=== PATIENT | male | born 1935 | race Caucasian/White ===

== ENCOUNTER 2018-03-21 11:03 | Inpatient (IN) ==
[2018-03-21] MEDS ORDERED: SODIUM CHLORIDE 0.9% 1,000 ML IV STA (11:22)
[2018-03-21] MEDS ORDERED: DIPH/TET/ACEL PERT BOOSTER VACCINE 0.5 ML VIAL IM ONE (11:22)
[2018-03-21 12:12] LABS: Basophils % 0.7 % (0.0-0.8); Eosinophils # 0.1 10*3/uL (0.0-0.87); Eosinophils % 1.1 % (0.00-10.9); Hemoglobin 11.9 GM/DL (14.0-18.0); Immature Granulocytes % 0.5 %; Immature Granulocytes Absolute 0.03 #; Lymphocytes % 16.1 % (21.2-54.2); Mean Corpuscular Hemoglobin 30 PG (27-34); Mean Corpuscular Volume 84.4 FL (87-102); Mean Platelet Volume 12.2 FL (9.6-12.0); Monocytes # 0.5 10*3/uL (0.11-0.8); Neutrophils # 4.5 10*3/uL (1.4-7.4); Neutrophils % 73.6 % (38.7-73.9); Platelet Count 168 T/CUMM (130-400); Red Blood Count 4.03 MC/CUMM (3.8-5.5); Red Cell Distribution Width 15.2 % (9.3-17.3); White Blood Count 6.1 T/CUMM (4-12)
[2018-03-21 12:18] LABS: PT Patient Result 10.4 SECS
[2018-03-21 13:18] LABS: Alanine Aminotransferase 18 U/L (16-61); Albumin 3.3 G/DL (3.4-5.0); Alkaline Phosphatase 88 U/L (45-117); Aspartate Amino Transferase 18 U/L (0-37); Blood Urea Nitrogen 24 MG/DL (7-18); Calcium 7.8 MG/DL (8.5-10.1); Glucose 95 MG/DL (74-106); Osmolality,Calculated 284.3 MOS/KG (273-304); Potassium 4.3 MMOL/L (3.5-5.1); Sodium 141 MMOL/L (136-145); Total Protein 6.4 G/DL (6.4-8.3)
[2018-03-21 13:19] LABS: Troponin I Only < 0.015 NG/ML (0.00-0.045)
[2018-03-21 14:00] LABS: Apearance,Urine CLOUDY (Clear); Bacteria,Urine Occasional /HPF (Few); Bilirubin,Urine Negative (Negative); Blood, Urine Large mg/dL (Negative); Glucose,Urine (UA) Negative (Negative); Ketones,Urine 5 mg/dL (Negative); Mucus,Urine Occasional /LPF (Occasional); Nitrite,Urine Negative (Negative); Protein,Urine 30 MG/DL; RBC,Urine 153 /HPF (0-4); Urine Color Yellow (Yellow); Urine Specific Gravity 1.011 (1.001-1.035); Urine Urobilinogen < 2.0 EU/DL (0.2-1.0); WBC,Urine 10 /HPF (0-6)
[2018-03-21] MEDS ORDERED: diphenhydrAMINE CAP 25 MG CAPSULE PO PRN (15:59)
[2018-03-21] MEDS ORDERED: ACETAMINOPHEN 325 MG TABLET PO PRN (15:59)
[2018-03-21] MEDS ORDERED: BISACODYL 5 MG TABLET PO PRN (15:59)
[2018-03-21] MEDS ORDERED: ONDANSETRON 4 MG/2 ML VIAL IV PRN (15:59)
[2018-03-21] MEDS ORDERED: ENOXAPARIN 40 MG/0.4 ML SYRINGE SUBCUT SCH (15:59)
[2018-03-21 17:04] LABS: Risk Ratio 2.56; VLDL CHOLESTEROL 14.6 MG/DL
[2018-03-21] MEDS: SODIUM CHLORIDE 0.9% 1,000 ML IV SCH (18:10)
[2018-03-21] MEDS: PANTOPRAZOLE 40 MG TABLET PO SCH (18:10)
[2018-03-21] MEDS: cefTRIAXone 1,000 MG in SYRINGE 1 EACH IV SCH (18:11)
[2018-03-21] MEDS: BRIMONIDINE 0.1% OPH SOLN 5 ML BOTTLE RIGHT EYE SCH (20:11)
[2018-03-22] MEDS: SODIUM CHLORIDE 0.9% 1,000 ML IV SCH ×3 (01:36→18:11)
[2018-03-22 04:59] LABS: Basophils % 0.7 % (0.0-0.8); Eosinophils # 0.1 10*3/uL (0.0-0.87); Hematocrit 34.5 VOL% (42.0-52.0); Hemoglobin 11.5 GM/DL (14.0-18.0); Immature Granulocytes Absolute 0.06 #; Lymphocytes # 1.4 10*3/uL (1.4-4.0); Lymphocytes % 22.9 % (21.2-54.2); Mean Corpuscular HGB Conc 33.3 GM/DL (32-36); Mean Corpuscular Hemoglobin 29 PG (27-34); Mean Corpuscular Volume 86.5 FL (87-102); Mean Platelet Volume 11.7 FL (9.6-12.0); Monocytes # 0.7 10*3/uL (0.11-0.8); Monocytes % 12.1 % (1.7-12.7); Neutrophils # 3.7 10*3/uL (1.4-7.4); Neutrophils % 61.3 % (38.7-73.9); Platelet Count 195 T/CUMM (130-400); Red Blood Count 3.99 MC/CUMM (3.8-5.5); Red Cell Distribution Width 15.1 % (9.3-17.3)
[2018-03-22 05:38] LABS: Albumin 2.9 G/DL (3.4-5.0); Calcium 7.8 MG/DL (8.5-10.1); Potassium 3.7 MMOL/L (3.5-5.1); Total Protein 6.2 G/DL (6.4-8.3)
[2018-03-22] MEDS: DOCUSATE SODIUM 100 MG CAPSULE PO PRN (09:10)
[2018-03-22] MEDS: ASPIRIN EC 325 MG TABLET PO SCH (09:11)
[2018-03-22] MEDS: PANTOPRAZOLE 40 MG TABLET PO SCH (09:11)
[2018-03-22] MEDS: BRIMONIDINE 0.1% OPH SOLN 5 ML BOTTLE RIGHT EYE SCH ×2 (09:15→20:17)
[2018-03-22] MEDS: cefTRIAXone 1,000 MG in SYRINGE 1 EACH IV SCH (18:12)
[2018-03-22] MEDS ORDERED: TAMSULOSIN 0.4 MG CAPSULE PO SCH (21:00)
[2018-03-23] MEDS: SODIUM CHLORIDE 0.9% 1,000 ML IV SCH (02:18)
[2018-03-23 08:16] VITALS: BP 134/79
[2018-03-23] MEDS: DOCUSATE SODIUM 100 MG CAPSULE PO PRN (09:50)
[2018-03-23] MEDS: PANTOPRAZOLE 40 MG TABLET PO SCH (09:50)
[2018-03-23] MEDS: BRIMONIDINE 0.1% OPH SOLN 5 ML BOTTLE RIGHT EYE SCH (09:50)
[2018-03-23] MEDS: ASPIRIN EC 325 MG TABLET PO SCH (09:50)
== END 2018-03-23 12:54 | disposition home health service (06) | DRG 312 ==
LOC: N.ED 11:03 → SUATTDRO 13:37 → N.EDINP 13:37 → N.TELEN 15:11
PROVIDERS: ADMIT Internal Medicine; ATTEND Internal Medicine

== ENCOUNTER 2018-04-12 05:00 | Inpatient (IN) ==
[2018-04-11 12:24] LABS: Basophils # 0.1 10*3/uL (0.0-0.2); Basophils % 0.6 % (0.0-0.8); Eosinophils # 0.2 10*3/uL (0.0-0.87); Eosinophils % 1.8 % (0.00-10.9); Hematocrit 38.5 VOL% (42.0-52.0); Hemoglobin 12.8 GM/DL (14.0-18.0); Immature Granulocytes % 0.4 %; Immature Granulocytes Absolute 0.04 #; Lymphocytes # 1.5 10*3/uL (1.4-4.0); Lymphocytes % 16.3 % (21.2-54.2); Mean Corpuscular HGB Conc 33.2 GM/DL (32-36); Mean Corpuscular Hemoglobin 29 PG (27-34); Mean Corpuscular Volume 86.3 FL (87-102); Mean Platelet Volume 10.5 FL (9.6-12.0); Monocytes % 11.3 % (1.7-12.7); Neutrophils # 6.3 10*3/uL (1.4-7.4); Neutrophils % 69.6 % (38.7-73.9); Platelet Count 218 T/CUMM (130-400); Red Blood Count 4.46 MC/CUMM (3.8-5.5); Red Cell Distribution Width 14.7 % (9.3-17.3)
[2018-04-11 12:34] LABS: INR 0.9; PT Patient Result 9.9 SECS; Partial Thromboplastin Time 24.8 SECS (0-40)
[2018-04-11 12:56] LABS: Calcium 8.6 MG/DL (8.5-10.1); Osmolality,Calculated 281.4 MOS/KG (273-304); Potassium 4.6 MMOL/L (3.5-5.1)
[~2018-04-12 05:00] MED LIST: SODIUM CHLORIDE 0.9% 1,000 ML IV PRN
[2018-04-12] MEDS ORDERED: CALCIUM CHLORIDE 1,000 MG/10 ML VIAL IV ONE (05:34)
[2018-04-12] MEDS ORDERED: HEPARIN/NACL 0.9% 2 UNITS/ML 500 ML IV ONE (05:34)
[2018-04-12] MEDS ORDERED: EPINEPHrine 1 MG/ML VIAL ONE ×2 (05:35→12:24)
[2018-04-12] MEDS ORDERED: ePHEDrine 50 MG/ML AMP ONE (05:35)
[2018-04-12] MEDS ORDERED: MIDAZOLAM 10 MG/2 ML VIAL ONE (05:35)
[2018-04-12] MEDS ORDERED: LACTATED RINGERS 1,000 ML IV ONE (05:36)
[2018-04-12] MEDS ORDERED: TRANEXAMIC ACID 1,000 MG/10 ML VIAL ONE (05:36)
[2018-04-12] MEDS ORDERED: DEXMEDETOMIDINE 200 MCG/2 ML VIAL IV ONE (05:36)
[2018-04-12] MEDS ORDERED: SODIUM CHLORIDE 0.9% 100 ML IV ONE (05:36)
[2018-04-12] MEDS ORDERED: SODIUM CHLORIDE 0.9% 250 ML IV ONE (05:36)
[2018-04-12] MEDS ORDERED: PHENYLEPHRINE 10 MG/1 ML VIAL IV ONE (05:36)
[2018-04-12] MEDS ORDERED: VECURONIUM 10 MG VIAL IV ONE (05:36)
[2018-04-12] MEDS ORDERED: NITROGLYCERIN DRIP 50 MG/250 ML BOTTLE IV ONE (05:36)
[2018-04-12] MEDS ORDERED: SODIUM CHLORIDE 0.9% 1,000 ML IV ONE (05:36)
[2018-04-12] MEDS ORDERED: PAPAVERINE 60 MG/2 ML VIAL ONE (05:44)
[2018-04-12] MEDS ORDERED: VANCOMYCIN 1,000 MG VIAL ONE ×2 (05:44→11:48)
[2018-04-12] MEDS ORDERED: TISSUE ADHESIVE 1 EACH APPLICATOR TOP ONE (05:44)
[2018-04-12] MEDS ORDERED: CEFUROXIME INJ 1,500 MG in SYRINGE 1 EACH IV ONE (06:00)
[2018-04-12] MEDS ORDERED: DIAZEPAM 5 MG TABLET PO ONE (06:13)
[2018-04-12] MEDS ORDERED: PANTOPRAZOLE 40 MG TABLET PO ONE ×2 (06:13→06:35)
[2018-04-12] MEDS ORDERED: CEFUROXIME 1,500 MG VIAL ONE (06:35)
[2018-04-12] MEDS ORDERED: DIAZEPAM 5 MG TABLET ONE (06:35)
[2018-04-12 08:02] LABS: ABG Base Excess -0.7 MMOL/L (-2.5-2.5); ABG HCO3 23.9 MMOL/L (20-26); ABG PH 7.412 (7.35-7.45); ABG TCO2 20.9 MMOL/L (23-27); Glucose Heart Surgery 116 MG/DL (74-106); Hematocrit Heart Surgery 35.6 PERCENT (42-52); Hemoglobin Heart Surgery 11.6 G/DL (14.0-18.0); Ionized Calcium Arterial 1.19 MMOL/L (1.21-1.46); PH Patient Temp Arterial 7.412; Patient Temperature 37 CELCIUS; Potassium Heart/CVR 3.4 MMOL/L (3.5-5.1); Sodium Heart/CVR 141 MMOL/L (135-145)
[2018-04-12 09:19] LABS: Apearance,Urine CLEAR (Clear); Bilirubin,Urine Negative (Negative); Blood, Urine Large mg/dL (Negative); Glucose,Urine (UA) Negative (Negative); Ketones,Urine Negative (Negative); Mucus,Urine Occasional /LPF (Occasional); Nitrite,Urine Negative (Negative); Protein,Urine 30 MG/DL; RBC,Urine 57 /HPF (0-4); Urine Color Yellow (Yellow); Urine Urobilinogen < 2.0 EU/DL (0.2-1.0); WBC,Urine 6 /HPF (0-6)
[2018-04-12 09:34] LABS: Hematocrit Heart Surgery 27.8 PERCENT (42-52); PCO2 Patient Temp Venous 30.1 MM HG; PH Patient Temp Venous 7.521; PO2 Patient Temp Venous 43.3 MM HG; VBG Base Excess 2.2 MEQ/L (0-4); VBG HCO3 26.2 MEQ/L (24-28); VBG Oxygen Saturation 86.7 %; VBG PCO2 31.6 MMHG (41-51); VBG PH 7.506; VBG PO2 46.4 MMHG (17-40)
[2018-04-12 10:04] LABS: Hematocrit Heart Surgery 28.9 PERCENT (42-52); Hemoglobin Heart Surgery 9.3 G/DL (14.0-18.0); PCO2 Patient Temp Venous 29.2 MM HG; PH Patient Temp Venous 7.522; PO2 Patient Temp Venous 44.8 MM HG; Potassium Heart/CVR 3.7 MMOL/L (3.5-5.1); VBG Base Excess 1.7 MEQ/L (0-4); VBG HCO3 25.8 MEQ/L (24-28); VBG Oxygen Saturation 91.2 %; VBG PCO2 33.8 MMHG (41-51); VBG PH 7.477; VBG PO2 54.8 MMHG (17-40)
[2018-04-12 10:40] LABS: Hematocrit Heart Surgery 28.4 PERCENT (42-52); Hemoglobin Heart Surgery 9.2 G/DL (14.0-18.0); PCO2 Patient Temp Venous 29.1 MM HG; PH Patient Temp Venous 7.538; PO2 Patient Temp Venous 41.7 MM HG; Potassium Heart/CVR 3.9 MMOL/L (3.5-5.1); VBG Base Excess 2.7 MEQ/L (0-4); VBG HCO3 26.7 MEQ/L (24-28); VBG Oxygen Saturation 87.9 %; VBG PCO2 32.1 MMHG (41-51); VBG PH 7.507; VBG PO2 47.8 MMHG (17-40)
[2018-04-12] MEDS ORDERED: POTASSIUM CHLORIDE RIDER 100 ML IV ONE (11:02)
[2018-04-12] MEDS ORDERED: ALBUMIN 5% 12.5 GM/250 ML VIAL IV ONE (11:02)
[2018-04-12] MEDS ORDERED: CALCIUM CHLORIDE 1,000 MG/10 ML SYRINGE IV ONE (11:02)
[2018-04-12] MEDS ORDERED: SODIUM BICARBONATE 50 MEQ/50 ML SYRINGE IV ONE ×2 (11:02→11:38)
[2018-04-12 11:05] LABS: Hematocrit Heart Surgery 28.3 PERCENT (42-52); Hemoglobin Heart Surgery 9.1 G/DL (14.0-18.0); PCO2 Patient Temp Venous 36.6 MM HG; PH Patient Temp Venous 7.445; PO2 Patient Temp Venous 46.3 MM HG; VBG Base Excess 1.3 MEQ/L (0-4); VBG HCO3 25.4 MEQ/L (24-28); VBG Oxygen Saturation 84.5 %; VBG PCO2 36.6 MMHG (41-51); VBG PH 7.445; VBG PO2 46.3 MMHG (17-40)
[2018-04-12 11:38] LABS: ABG Base Excess 0.5 MMOL/L (-2.5-2.5); ABG HCO3 24.9 MMOL/L (20-26); ABG PCO2 42.3 MM HG (35-48); ABG PH 7.389 (7.35-7.45); ABG TCO2 23.2 MMOL/L (23-27); Glucose Heart Surgery 245 MG/DL (74-106); Hematocrit Heart Surgery 31.8 PERCENT (42-52); Hemoglobin Heart Surgery 10.3 G/DL (14.0-18.0); Ionized Calcium Arterial 1.17 MMOL/L (1.21-1.46); PCO2 Patient Temp Arterial 42.3 MMHG; PH Patient Temp Arterial 7.389; Patient Temperature 37 CELCIUS; Potassium Heart/CVR 3.4 MMOL/L (3.5-5.1); Sodium Heart/CVR 137 MMOL/L (135-145)
[2018-04-12] MEDS ORDERED: MAGNESIUM SULFATE 1 GM/2 ML VIAL ONE (11:38)
[2018-04-12] MEDS ORDERED: PROTAMINE SULFATE 250 MG/25 ML VIAL IV ONE (11:38)
[2018-04-12] MEDS ORDERED: HEPARIN 10,000 UNIT/10 ML VIAL ONE (11:38)
[2018-04-12] MEDS ORDERED: ALBUMIN 25% 25 GM/100 ML VIAL IV ONE (11:38)
[2018-04-12] MEDS ORDERED: methylPREDNISolone SOD SUC 1,000 MG/8 ML VIAL ONE (11:38)
[2018-04-12] MEDS ORDERED: MANNITOL 12.5 GM/50 ML VIAL IV ONE (11:39)
[2018-04-12] MEDS ORDERED: FUROSEMIDE 20 MG/2 ML VIAL ONE (11:39)
[2018-04-12] MEDS ORDERED: PROTAMINE SULFATE 50 MG/5 ML VIAL IV ONE (11:39)
[2018-04-12] MEDS ORDERED: PHENYLEPHRINE 1 MG/10 ML SYRINGE IV ONE (11:39)
[2018-04-12] MEDS ORDERED: ONDANSETRON 4 MG/2 ML VIAL IV PRN (12:23)
[2018-04-12] MEDS ORDERED: MAGNESIUM SULF RIDER 4 GM in PREMIX 1 EACH IV PRN (12:23)
[2018-04-12] MEDS ORDERED: CALCIUM CHLORIDE 1,000 MG/10 ML SYRINGE IV PRN (12:23)
[2018-04-12] MEDS ORDERED: ACETAMINOPHEN 650 MG SUPP RECTAL PRN (12:23)
[2018-04-12] MEDS ORDERED: MORPHINE 10 MG/1 ML VIAL IV PRN (12:23)
[2018-04-12] MEDS ORDERED: SODIUM CHLORIDE 0.9% 250 ML IV PRN (12:23)
[2018-04-12] MEDS ORDERED: CHLORHEXIDINE 4% SOLN 118 ML BOTTLE TOP PRN (12:23)
[2018-04-12] MEDS ORDERED: INSULIN REGULAR 100 UNIT/ML IV PRN (12:23)
[2018-04-12] MEDS ORDERED: MIDAZOLAM 2 MG/2 ML VIAL IV PRN (12:23)
[2018-04-12] MEDS ORDERED: POTASSIUM CHLORIDE RIDER 10 MEQ in PREMIX 1 EACH IV PRN (12:23)
[2018-04-12] MEDS ORDERED: MAGNESIUM SULF RIDER 2 GM in PREMIX 1 EACH IV PRN (12:23)
[2018-04-12] MEDS ORDERED: DEXTROSE 50% 25 GM/50 ML VIAL IV PRN ×2 (12:23)
[2018-04-12] MEDS ORDERED: INSULIN REGULAR DRIP 100 ML IV SCH (12:30)
[2018-04-12] MEDS ORDERED: SEVOFLURANE 1 UNIT/15 MINUTE INH ONE (12:41)
[2018-04-12] MEDS ORDERED: LIDOCAINE 1% 5 ML VIAL ONE (12:41)
[2018-04-12] MEDS ORDERED: ESMOLOL 100 MG/10 ML VIAL IV ONE (12:41)
[2018-04-12] MEDS: SODIUM CHLORIDE 0.45% 1,000 ML IV SCH ×2 (13:00)
[2018-04-12] MEDS: ALBUMIN 5% 12.5 GM in PREMIX 1 EACH IV PRN ×4 (13:15→17:35)
[2018-04-12 13:18] LABS: ABG Base Excess -1.1 MMOL/L (-2.5-2.5); ABG HCO3 23.5 MMOL/L (20-26); ABG Oxygen Saturation 97.2 % (95-100); ABG PCO2 42.6 MM HG (35-48); ABG PH 7.365 (7.35-7.45); ABG PO2 91.9 MM HG (80-95); Glucose Heart Surgery 243 MG/DL (74-106); Hematocrit Heart Surgery 32.4 PERCENT (42-52); Hemoglobin Heart Surgery 10.5 G/DL (14.0-18.0); Potassium Heart/CVR 3.4 MMOL/L (3.5-5.1)
[2018-04-12 13:22] LABS: Basophils % 0.2 % (0.0-0.8); Eosinophils % 0.3 % (0.00-10.9); Hematocrit 31.3 VOL% (42.0-52.0); Hemoglobin 10.5 GM/DL (14.0-18.0); Immature Granulocytes % 0.7 %; Immature Granulocytes Absolute 0.08 #; Lymphocytes # 0.5 10*3/uL (1.4-4.0); Mean Corpuscular HGB Conc 33.5 GM/DL (32-36); Mean Corpuscular Hemoglobin 29 PG (27-34); Mean Platelet Volume 10.8 FL (9.6-12.0); Monocytes # 0.8 10*3/uL (0.11-0.8); Monocytes % 6.7 % (1.7-12.7); Neutrophils # 10.1 10*3/uL (1.4-7.4); Neutrophils % 88.1 % (38.7-73.9); Platelet Count 142 T/CUMM (130-400); Red Blood Count 3.64 MC/CUMM (3.8-5.5); Red Cell Distribution Width 14.4 % (9.3-17.3); White Blood Count 11.4 T/CUMM (4-12)
[2018-04-12 13:36] LABS: INR 1.1; PT Patient Result 11.5 SECS; Partial Thromboplastin Time 27.2 SECS (0-40)
[2018-04-12] MEDS: POTASSIUM CHLORIDE RIDER 20 MEQ in PREMIX 1 EACH IV PRN ×3 (13:41→16:58)
[2018-04-12 13:47] LABS: Blood Urea Nitrogen 15 MG/DL (7-18); Calcium 8.3 MG/DL (8.5-10.1); Glucose 230 MG/DL (74-106); Osmolality,Calculated 286.4 MOS/KG (273-304); Potassium 3.5 MMOL/L (3.5-5.1); Sodium 140 MMOL/L (136-145)
[2018-04-12 14:38] LABS: Band Neutrophils 6 % (0-10); Lymphocytes 7 % (20-55); Segmented Neutrophils 86 % (50-85); Total Cells Counted 100
[2018-04-12 14:39] LABS: Platelet Estimate Adequate
[2018-04-12 15:21] LABS: Hematocrit Heart Surgery 33.5 PERCENT (42-52); Hemoglobin Heart Surgery 10.9 G/DL (14.0-18.0); PCO2 Patient Temp Venous 34.6 MM HG; PH Patient Temp Venous 7.441; Potassium Heart/CVR 4.4 MMOL/L (3.5-5.1); VBG Base Excess -0.1 MEQ/L (0-4); VBG HCO3 24.4 MEQ/L (24-28); VBG Oxygen Saturation 99.2 %; VBG PCO2 34.6 MMHG (41-51); VBG PH 7.441
[2018-04-12 16:01] LABS: ABG Base Excess -0.1 MMOL/L (-2.5-2.5); ABG HCO3 24.4 MMOL/L (20-26); ABG Oxygen Saturation 99.2 % (95-100); ABG PCO2 34.7 MM HG (35-48); ABG PH 7.441 (7.35-7.45); ABG TCO2 21.3 MMOL/L (23-27); Glucose Heart Surgery 159 MG/DL (74-106); Hematocrit Heart Surgery 32.1 PERCENT (42-52); Hemoglobin Heart Surgery 10.4 G/DL (14.0-18.0); Potassium Heart/CVR 4.3 MMOL/L (3.5-5.1)
[2018-04-12] MEDS: MORPHINE 4 MG/1 ML VIAL IV PRN ×2 (16:57→19:31)
[2018-04-12] MEDS: CEFUROXIME INJ 1,500 MG in SYRINGE 1 EACH IV SCH (20:30)
[2018-04-12] MEDS: CHLORHEXIDINE 0.12% ORAL RINSE 60 ML BOTTLE SWISH/SPIT SCH (20:53)
[2018-04-13] MEDS: SODIUM CHLORIDE 0.45% 1,000 ML IV SCH ×2 (01:58→15:29)
[2018-04-13] MEDS: MORPHINE 4 MG/1 ML VIAL IV PRN ×3 (02:37→21:10)
[2018-04-13 04:19] LABS: Basophils % 0.1 % (0.0-0.8); Hemoglobin 8.8 GM/DL (14.0-18.0); Immature Granulocytes % 0.3 %; Immature Granulocytes Absolute 0.05 #; Lymphocytes # 0.4 10*3/uL (1.4-4.0); Mean Corpuscular HGB Conc 33.8 GM/DL (32-36); Mean Corpuscular Hemoglobin 29 PG (27-34); Mean Corpuscular Volume 86.4 FL (87-102); Monocytes % 6.8 % (1.7-12.7); Neutrophils # 13.1 10*3/uL (1.4-7.4); Neutrophils % 89.8 % (38.7-73.9); Platelet Count 136 T/CUMM (130-400); Red Blood Count 3.01 MC/CUMM (3.8-5.5); Red Cell Distribution Width 14.5 % (9.3-17.3); White Blood Count 14.5 T/CUMM (4-12)
[2018-04-13 04:33] LABS: Calcium 7.9 MG/DL (8.5-10.1); Osmolality,Calculated 279.5 MOS/KG (273-304); Potassium 4.1 MMOL/L (3.5-5.1)
[2018-04-13 05:06] LABS: Band Neutrophils 1 % (0-10); Hypochromasia 1+; Lymphocytes 2 % (20-55); Ovalocytes Slight; Platelet Estimate Normal; Segmented Neutrophils 91 % (50-85); Total Cells Counted 100
[2018-04-13] MEDS: INSULIN REGULAR 100 UNIT/ML SUBCUT SCH ×4 (08:08→21:09)
[2018-04-13] MEDS: FUROSEMIDE 40 MG TABLET PO SCH (08:52)
[2018-04-13] MEDS: PANTOPRAZOLE 40 MG VIAL IV SCH (08:52)
[2018-04-13] MEDS: ASPIRIN EC 325 MG TABLET PO SCH (08:52)
[2018-04-13] MEDS: CEFUROXIME INJ 1,500 MG in SYRINGE 1 EACH IV SCH ×2 (08:53→21:09)
[2018-04-13] MEDS: CHLORHEXIDINE 0.12% ORAL RINSE 60 ML BOTTLE SWISH/SPIT SCH ×2 (09:14→21:09)
[2018-04-13] MEDS: METOPROLOL TARTRATE 25 MG TABLET PO SCH ×2 (09:14→21:07)
[2018-04-13] MEDS: ATORVASTATIN 40 MG TABLET PO SCH (21:07)
[2018-04-13] MEDS: TAMSULOSIN 0.4 MG CAPSULE PO SCH (21:07)
[2018-04-13] MEDS: BRIMONIDINE 0.1% OPH SOLN 5 ML BOTTLE RIGHT EYE SCH (21:09)
[2018-04-14] MEDS ORDERED: AMIODARONE 150 MG/3 ML VIAL ONE (03:11)
[2018-04-14] MEDS ORDERED: AMIODARONE INJ 150 MG in DEXTROSE 5% 100 ML IV ONE ×2 (03:30→10:30)
[2018-04-14] MEDS ORDERED: AMIODARONE INJ 450 MG in DEXTROSE 5% 241 ML IV SCH ×2 (03:45→10:30)
[2018-04-14 05:35] LABS: Basophils % 0.2 % (0.0-0.8); Hematocrit 29.9 VOL% (42.0-52.0); Hemoglobin 9.9 GM/DL (14.0-18.0); Immature Granulocytes % 0.9 %; Immature Granulocytes Absolute 0.17 #; Lymphocytes # 0.9 10*3/uL (1.4-4.0); Mean Corpuscular HGB Conc 33.1 GM/DL (32-36); Mean Corpuscular Hemoglobin 29 PG (27-34); Mean Corpuscular Volume 87.7 FL (87-102); Mean Platelet Volume 11.6 FL (9.6-12.0); Monocytes # 2.2 10*3/uL (0.11-0.8); Monocytes % 11.8 % (1.7-12.7); Neutrophils # 15.1 10*3/uL (1.4-7.4); Neutrophils % 82.1 % (38.7-73.9); Platelet Count 149 T/CUMM (130-400); Red Blood Count 3.41 MC/CUMM (3.8-5.5); Red Cell Distribution Width 14.4 % (9.3-17.3); White Blood Count 18.4 T/CUMM (4-12)
[2018-04-14 06:04] LABS: Calcium 8.2 MG/DL (8.5-10.1); Potassium 4.2 MMOL/L (3.5-5.1)
[2018-04-14] MEDS: INSULIN REGULAR 100 UNIT/ML SUBCUT SCH ×4 (07:33→20:29)
[2018-04-14] MEDS: FUROSEMIDE 40 MG TABLET PO SCH (08:34)
[2018-04-14] MEDS: METOPROLOL TARTRATE 25 MG TABLET PO SCH (08:34)
[2018-04-14] MEDS: MULTIVITAMIN (BEROCCA) TABLET PO SCH (08:34)
[2018-04-14] MEDS: ASPIRIN EC 325 MG TABLET PO SCH (08:35)
[2018-04-14] MEDS: CHLORHEXIDINE 0.12% ORAL RINSE 60 ML BOTTLE SWISH/SPIT SCH ×2 (08:35→20:28)
[2018-04-14] MEDS: BRIMONIDINE 0.1% OPH SOLN 5 ML BOTTLE RIGHT EYE SCH ×2 (08:37→20:28)
[2018-04-14] MEDS: PANTOPRAZOLE 40 MG VIAL IV SCH (08:48)
[2018-04-14] MEDS ORDERED: FUROSEMIDE 40 MG/4 ML VIAL IV ONE (09:43)
[2018-04-14] MEDS ORDERED: LEVALBUTEROL 0.31 MG/3 ML NEB RESP TX PRN (09:43)
[2018-04-14] MEDS ORDERED: ALBUMIN 5% 12.5 GM in PREMIX 1 EACH IV ONE ×2 (10:00→12:54)
[2018-04-14] MEDS ORDERED: LACTATED RINGERS 500 ML IV ONE (12:54)
[2018-04-14] MEDS: ASCORBIC ACID 500 MG TABLET PO SCH ×2 (15:20→20:28)
[2018-04-14] MEDS ORDERED: METOPROLOL TARTRATE 5 MG/5 ML VIAL IV ONE (19:00)
[2018-04-14] MEDS ORDERED: DILTIAZEM INJ 100 MG in SODIUM CHLORIDE 0.9% 100 ML IV SCH (19:30)
[2018-04-14] MEDS: TAMSULOSIN 0.4 MG CAPSULE PO SCH (20:28)
[2018-04-14] MEDS: ATORVASTATIN 40 MG TABLET PO SCH (20:28)
[2018-04-15 05:05] LABS: Basophils % 0.2 % (0.0-0.8); Eosinophils % 0.3 % (0.00-10.9); Hematocrit 27.7 VOL% (42.0-52.0); Hemoglobin 9.6 GM/DL (14.0-18.0); Immature Granulocytes % 0.6 %; Immature Granulocytes Absolute 0.07 #; Lymphocytes # 0.9 10*3/uL (1.4-4.0); Lymphocytes % 7.1 % (21.2-54.2); Mean Corpuscular HGB Conc 34.7 GM/DL (32-36); Mean Corpuscular Hemoglobin 30 PG (27-34); Mean Corpuscular Volume 85.2 FL (87-102); Mean Platelet Volume 11.2 FL (9.6-12.0); Monocytes # 1.3 10*3/uL (0.11-0.8); Monocytes % 10.2 % (1.7-12.7); Neutrophils # 10.1 10*3/uL (1.4-7.4); Neutrophils % 81.6 % (38.7-73.9); Platelet Count 143 T/CUMM (130-400); Red Blood Count 3.25 MC/CUMM (3.8-5.5); Red Cell Distribution Width 14.2 % (9.3-17.3); White Blood Count 12.3 T/CUMM (4-12)
[2018-04-15 05:31] LABS: Calcium 8.1 MG/DL (8.5-10.1); Osmolality,Calculated 280.5 MOS/KG (273-304); Potassium 3.8 MMOL/L (3.5-5.1)
[2018-04-15] MEDS ORDERED: POTASSIUM CHLORIDE RIDER 20 MEQ in PREMIX 1 EACH IV PRN (06:14)
[2018-04-15] MEDS ORDERED: AMIODARONE INJ 450 MG in DEXTROSE 5% 241 ML IV SCH (06:30)
[2018-04-15] MEDS ORDERED: LACTATED RINGERS 500 ML IV ONE (07:21)
[2018-04-15] MEDS ORDERED: METOPROLOL TARTRATE 5 MG/5 ML VIAL IV ONE ×3 (07:36→07:54)
[2018-04-15] MEDS ORDERED: DILTIAZEM 50 MG/10 ML VIAL IV ONE ×2 (07:51→07:55)
[2018-04-15] MEDS ORDERED: ZINC OXIDE PASTE 113 GM TUBE TOP PRN (10:11)
[2018-04-15] MEDS: MULTIVITAMIN (BEROCCA) TABLET PO SCH (10:44)
[2018-04-15] MEDS: BRIMONIDINE 0.1% OPH SOLN 5 ML BOTTLE RIGHT EYE SCH ×2 (10:44→21:47)
[2018-04-15] MEDS: ASPIRIN EC 325 MG TABLET PO SCH (10:44)
[2018-04-15] MEDS: POTASSIUM CHLORIDE RIDER 20 MEQ in PREMIX 1 EACH IV PRN ×3 (10:44→14:50)
[2018-04-15] MEDS: ASCORBIC ACID 500 MG TABLET PO SCH ×2 (10:55→21:47)
[2018-04-15] MEDS: FUROSEMIDE 40 MG TABLET PO SCH (10:55)
[2018-04-15] MEDS: CHLORHEXIDINE 0.12% ORAL RINSE 60 ML BOTTLE SWISH/SPIT SCH ×2 (10:55→21:48)
[2018-04-15] MEDS: INSULIN REGULAR 100 UNIT/ML SUBCUT SCH ×4 (11:45→21:55)
[2018-04-15] MEDS ORDERED: ESMOLOL 100 MG/10 ML VIAL IV ONE ×2 (11:52→12:30)
[2018-04-15] MEDS: ACETYLCYSTEINE 20% 800 MG/4 ML VIAL RESP TX SCH ×3 (13:50→19:19)
[2018-04-15] MEDS: AMIODARONE INJ 450 MG in DEXTROSE 5% 241 ML IV SCH (16:31)
[2018-04-15] MEDS: PANTOPRAZOLE 40 MG VIAL IV SCH (16:31)
[2018-04-15] MEDS: ATORVASTATIN 40 MG TABLET PO SCH (21:47)
[2018-04-15] MEDS: TAMSULOSIN 0.4 MG CAPSULE PO SCH (21:47)
[2018-04-16] MEDS: ACETYLCYSTEINE 20% 800 MG/4 ML VIAL RESP TX SCH ×4 (00:15→19:28)
[2018-04-16] MEDS: AMIODARONE INJ 450 MG in DEXTROSE 5% 241 ML IV SCH ×2 (05:53→12:10)
[2018-04-16 07:37] LABS: Basophils # 0.1 10*3/uL (0.0-0.2); Basophils % 0.3 % (0.0-0.8); Eosinophils # 0.3 10*3/uL (0.0-0.87); Eosinophils % 2.2 % (0.00-10.9); Hematocrit 30.5 VOL% (42.0-52.0); Hemoglobin 10.4 GM/DL (14.0-18.0); Immature Granulocytes % 0.6 %; Immature Granulocytes Absolute 0.09 #; Lymphocytes # 1.2 10*3/uL (1.4-4.0); Lymphocytes % 8.2 % (21.2-54.2); Mean Corpuscular HGB Conc 34.1 GM/DL (32-36); Mean Corpuscular Hemoglobin 29 PG (27-34); Mean Corpuscular Volume 85.7 FL (87-102); Mean Platelet Volume 12.2 FL (9.6-12.0); Monocytes # 1.6 10*3/uL (0.11-0.8); Monocytes % 10.6 % (1.7-12.7); Neutrophils # 11.5 10*3/uL (1.4-7.4); Neutrophils % 78.1 % (38.7-73.9); Platelet Count 146 T/CUMM (130-400); Red Blood Count 3.56 MC/CUMM (3.8-5.5); White Blood Count 14.8 T/CUMM (4-12)
[2018-04-16 08:03] LABS: Calcium 8.4 MG/DL (8.5-10.1); Osmolality,Calculated 280.7 MOS/KG (273-304)
[2018-04-16] MEDS ORDERED: MIDAZOLAM 10 MG/2 ML VIAL ONE (08:14)
[2018-04-16] MEDS ORDERED: FLUMAZENIL 0.5 MG/5 ML VIAL IV ONE (08:16)
[2018-04-16] MEDS: ASPIRIN EC 325 MG TABLET PO SCH (12:10)
[2018-04-16] MEDS: BRIMONIDINE 0.1% OPH SOLN 5 ML BOTTLE RIGHT EYE SCH ×2 (12:10→21:38)
[2018-04-16] MEDS: INSULIN REGULAR 100 UNIT/ML SUBCUT SCH ×2 (12:10→17:51)
[2018-04-16] MEDS: AMIODARONE 200 MG TABLET PO SCH ×2 (12:11→21:37)
[2018-04-16] MEDS: FUROSEMIDE 40 MG TABLET PO SCH (12:11)
[2018-04-16] MEDS: CHLORHEXIDINE 0.12% ORAL RINSE 60 ML BOTTLE SWISH/SPIT SCH ×2 (12:11→21:38)
[2018-04-16] MEDS: ASCORBIC ACID 500 MG TABLET PO SCH ×2 (12:11→21:36)
[2018-04-16] MEDS: MULTIVITAMIN (BEROCCA) TABLET PO SCH (12:11)
[2018-04-16] MEDS: PANTOPRAZOLE 40 MG VIAL IV SCH (12:11)
[2018-04-16] MEDS: TAMSULOSIN 0.4 MG CAPSULE PO SCH (21:37)
[2018-04-16] MEDS: ATORVASTATIN 40 MG TABLET PO SCH (21:37)
[2018-04-17] MEDS: ACETYLCYSTEINE 20% 800 MG/4 ML VIAL RESP TX SCH ×4 (00:10→19:49)
[2018-04-17] MEDS: INSULIN REGULAR 100 UNIT/ML SUBCUT SCH ×5 (07:16→21:51)
[2018-04-17 08:11] LABS: Basophils # 0.1 10*3/uL (0.0-0.2); Basophils % 0.5 % (0.0-0.8); Eosinophils # 0.5 10*3/uL (0.0-0.87); Eosinophils % 4.3 % (0.00-10.9); Hematocrit 27.7 VOL% (42.0-52.0); Hemoglobin 9.2 GM/DL (14.0-18.0); Immature Granulocytes % 0.9 %; Lymphocytes # 1.1 10*3/uL (1.4-4.0); Lymphocytes % 10.3 % (21.2-54.2); Mean Corpuscular HGB Conc 33.2 GM/DL (32-36); Mean Corpuscular Hemoglobin 29 PG (27-34); Mean Corpuscular Volume 87.1 FL (87-102); Mean Platelet Volume 10.9 FL (9.6-12.0); Monocytes # 1.5 10*3/uL (0.11-0.8); Monocytes % 13.8 % (1.7-12.7); Neutrophils # 7.7 10*3/uL (1.4-7.4); Neutrophils % 70.2 % (38.7-73.9); Platelet Count 206 T/CUMM (130-400); Red Blood Count 3.18 MC/CUMM (3.8-5.5); Red Cell Distribution Width 13.8 % (9.3-17.3)
[2018-04-17 08:37] LABS: Calcium 8.3 MG/DL (8.5-10.1); Osmolality,Calculated 280.4 MOS/KG (273-304); Potassium 3.8 MMOL/L (3.5-5.1)
[2018-04-17] MEDS: PANTOPRAZOLE 40 MG VIAL IV SCH (09:22)
[2018-04-17] MEDS: METOPROLOL TARTRATE 25 MG TABLET PO SCH ×2 (09:22→21:51)
[2018-04-17] MEDS: FUROSEMIDE 40 MG TABLET PO SCH (09:22)
[2018-04-17] MEDS: ASPIRIN EC 325 MG TABLET PO SCH (09:22)
[2018-04-17] MEDS: ASCORBIC ACID 500 MG TABLET PO SCH ×2 (09:22→21:50)
[2018-04-17] MEDS: MULTIVITAMIN (BEROCCA) TABLET PO SCH (09:22)
[2018-04-17] MEDS: AMIODARONE 200 MG TABLET PO SCH ×2 (09:22→21:51)
[2018-04-17] MEDS: BRIMONIDINE 0.1% OPH SOLN 5 ML BOTTLE RIGHT EYE SCH ×2 (09:28→21:51)
[2018-04-17] MEDS: CHLORHEXIDINE 0.12% ORAL RINSE 60 ML BOTTLE SWISH/SPIT SCH ×2 (09:29→21:51)
[2018-04-17 16:47] LABS: Hepatitis A Ab IgM Quant 0.28 Index; Hepatitis A Ab IgM Result Negative (Negative); Hepatitis B Core IgM Quant 0.11 Index; Hepatitis B Core IgM Result Negative (Negative); Hepatitis B Surface Ag Quant < 0.10 Index; Hepatitis B Surface Ag Result Negative (Negative); Hepatitis C Virus Ab Quant 0.07 Index; Hepatitis C Virus Ab Result Negative (Negative)
[2018-04-17] MEDS: ALBUTEROL/IPRATROPIUM 3 ML NEB RESP TX SCH (19:40)
[2018-04-17] MEDS: TAMSULOSIN 0.4 MG CAPSULE PO SCH (21:50)
[2018-04-17] MEDS: ATORVASTATIN 40 MG TABLET PO SCH (21:55)
[2018-04-17] MEDS ORDERED: diphenhydrAMINE 50 MG/1 ML VIAL IV ONE (22:12)
[2018-04-18] MEDS: ALBUTEROL/IPRATROPIUM 3 ML NEB RESP TX SCH ×2 (01:20→07:38)
[2018-04-18] MEDS: ACETYLCYSTEINE 20% 800 MG/4 ML VIAL RESP TX SCH ×2 (01:21→07:38)
[2018-04-18 06:11] LABS: Basophils # 0.1 10*3/uL (0.0-0.2); Basophils % 0.6 % (0.0-0.8); Eosinophils # 0.5 10*3/uL (0.0-0.87); Eosinophils % 5.2 % (0.00-10.9); Hematocrit 26.4 VOL% (42.0-52.0); Hemoglobin 8.6 GM/DL (14.0-18.0); Immature Granulocytes % 1.6 %; Immature Granulocytes Absolute 0.16 #; Lymphocytes # 1.5 10*3/uL (1.4-4.0); Mean Corpuscular HGB Conc 32.6 GM/DL (32-36); Mean Corpuscular Hemoglobin 28 PG (27-34); Mean Corpuscular Volume 87.1 FL (87-102); Mean Platelet Volume 10.9 FL (9.6-12.0); Monocytes # 1.4 10*3/uL (0.11-0.8); Neutrophils # 6.3 10*3/uL (1.4-7.4); Neutrophils % 63.6 % (38.7-73.9); Platelet Count 222 T/CUMM (130-400); Red Blood Count 3.03 MC/CUMM (3.8-5.5); Red Cell Distribution Width 13.8 % (9.3-17.3); White Blood Count 9.9 T/CUMM (4-12)
[2018-04-18 06:17] LABS: Calcium 8.4 MG/DL (8.5-10.1); Osmolality,Calculated 285.3 MOS/KG (273-304); Potassium 3.5 MMOL/L (3.5-5.1)
[2018-04-18] MEDS ORDERED: FUROSEMIDE 20 MG/2 ML VIAL IV ONE (07:59)
[2018-04-18] MEDS ORDERED: SODIUM CHLORIDE 0.9% 1,000 ML IV PRN (08:45)
[2018-04-18] MEDS: FUROSEMIDE 40 MG TABLET PO SCH (09:26)
[2018-04-18] MEDS: METOPROLOL TARTRATE 25 MG TABLET PO SCH (09:26)
[2018-04-18] MEDS: ASPIRIN EC 325 MG TABLET PO SCH (09:26)
[2018-04-18] MEDS: AMIODARONE 200 MG TABLET PO SCH (09:26)
[2018-04-18] MEDS: MULTIVITAMIN (BEROCCA) TABLET PO SCH (09:26)
[2018-04-18] MEDS: ASCORBIC ACID 500 MG TABLET PO SCH (09:26)
[2018-04-18] MEDS: PANTOPRAZOLE 40 MG VIAL IV SCH (09:27)
[2018-04-18] MEDS: INSULIN REGULAR 100 UNIT/ML SUBCUT SCH ×3 (10:18→16:12)
[2018-04-18] MEDS: BRIMONIDINE 0.1% OPH SOLN 5 ML BOTTLE RIGHT EYE SCH (10:19)
[2018-04-18] MEDS: CHLORHEXIDINE 0.12% ORAL RINSE 60 ML BOTTLE SWISH/SPIT SCH (10:19)
[2018-04-18] MEDS ORDERED: SODIUM PHOSPHATE ENEMA 133 ML BOTTLE RECTAL ONE (14:19)
[2018-04-18 17:45] VITALS: BP 116/57
== END 2018-04-18 16:30 | disposition swing bed (61) | DRG 220 ==
LOC: N.SDSINP 05:22 → N.CVR 10:37 → N.TELES 04-13 13:35
PROVIDERS: ADMIT Thoracic Surgery (Cardiothoracic Vascular Surgery); ATTEND Thoracic Surgery (Cardiothoracic Vascular Surgery)

== ENCOUNTER 2019-04-04 15:10 | Observation (INO) ==
[2019-04-04 19:11] LABS: Basophils # 0.1 10*3/uL (0.0-0.2); Eosinophils # 0.1 10*3/uL (0.0-0.87); Eosinophils % 1.4 % (0.00-10.9); Hematocrit 42.1 VOL% (42.0-52.0); Hemoglobin 13.5 GM/DL (14.0-18.0); Immature Granulocytes % 0.3 %; Immature Granulocytes Absolute 0.02 #; Lymphocytes # 1.5 10*3/uL (1.4-4.0); Lymphocytes % 24.7 % (21.2-54.2); Mean Corpuscular HGB Conc 32.1 GM/DL (32-36); Mean Platelet Volume 10.8 FL (9.6-12.0); Monocytes % 12.2 % (1.7-12.7); Neutrophils % 60.4 % (38.7-73.9); Platelet Count 198 T/CUMM (130-400); Red Blood Count 4.84 MC/CUMM (3.8-5.5); Red Cell Distribution Width 15.1 % (9.3-17.3); White Blood Count 5.9 T/CUMM (4-12)
[2019-04-04 19:21] LABS: INR 0.9; PT Patient Result 10.3 SECS; Partial Thromboplastin Time 23.6 SECS (0-40)
[2019-04-04 19:28] LABS: Acetaminophen < 2.0 UG/ML (10-30); Salicylate < 2.8 MG/DL (2.8-20)
[2019-04-04 19:30] LABS: Alanine Aminotransferase 18 U/L (16-61); Albumin 3.4 G/DL (3.4-5.0); Alkaline Phosphatase 123 U/L (45-117); Aspartate Amino Transferase 9 U/L (0-37); Blood Urea Nitrogen 19 MG/DL (7-18); Calcium 8.7 MG/DL (8.5-10.1); Glucose 116 MG/DL (74-106); Osmolality,Calculated 285.1 MOS/KG (273-304); Total Protein 7.1 G/DL (6.4-8.3); Troponin I < 0.015 NG/ML (0.00-0.045)
[2019-04-04 19:59] LABS: Apearance,Urine Slightly Hazy (Clear); Bilirubin,Urine Negative (Negative); Blood, Urine Large mg/dL (Negative); Glucose,Urine (UA) Negative (Negative); Hyaline Casts,Urine 1 /LPF (0-3); Ketones,Urine Negative (Negative); Mucus,Urine Occasional /LPF (Occasional); Nitrite,Urine Negative (Negative); Protein,Urine 100 MG/DL; RBC,Urine 360 /HPF (0-4); Squamous Epithelial Cell,Urine Occasional /HPF (0-10); Urine Color Yellow (Yellow); Urine Specific Gravity 1.013 (1.001-1.035); Urine Urobilinogen < 2.0 EU/DL (0.2-1.0); WBC,Urine 49 /HPF (0-6)
[2019-04-04 20:04] LABS: Barbiturates Screen,Urine Negative (Negative); Benzodiazepines Screen,Urine Negative (Negative); Cannabinoid Screen,Urine Negative (Negative); Opiate Screen,Urine Negative (Negative); Phencyclidine Screen,Urine Negative (Negative)
[2019-04-04] MEDS ORDERED: cefTRIAXone 1,000 MG in SODIUM CHLORIDE 0.9% 100 ML IV STA (20:23)
[2019-04-04] MEDS ORDERED: LIDOCAINE 1% 50 ML VIAL ONE (20:27)
[2019-04-04] MEDS ORDERED: ACETAMINOPHEN 325 MG TABLET PO PRN (21:12)
[2019-04-04] MEDS ORDERED: ONDANSETRON 4 MG/2 ML VIAL IV PRN (21:12)
[2019-04-04] MEDS ORDERED: MORPHINE 4 MG/1 ML VIAL IV PRN (21:12)
[2019-04-04] MEDS ORDERED: NICOTINE 21 MG/24 HR PATCH TRANSDERM PRN (21:12)
[2019-04-04] MEDS ORDERED: BISACODYL 5 MG TABLET PO PRN (21:12)
[2019-04-04] MEDS ORDERED: diphenhydrAMINE CAP 25 MG CAPSULE PO PRN (21:12)
[2019-04-04 21:45] LABS: Risk Ratio 2.86; VLDL CHOLESTEROL 20.4 MG/DL
[2019-04-05] MEDS: cefTRIAXone 1,000 MG in SYRINGE 1 EACH IV SCH ×2 (09:24→21:33)
[2019-04-05] MEDS: PANTOPRAZOLE 40 MG TABLET PO SCH (09:24)
[2019-04-06 05:22] LABS: Basophils % 0.7 % (0.0-0.8); Eosinophils # 0.1 10*3/uL (0.0-0.87); Eosinophils % 1.7 % (0.00-10.9); Hematocrit 40.2 VOL% (42.0-52.0); Hemoglobin 12.8 GM/DL (14.0-18.0); Immature Granulocytes % 0.3 %; Immature Granulocytes Absolute 0.02 #; Lymphocytes # 1.5 10*3/uL (1.4-4.0); Lymphocytes % 25.1 % (21.2-54.2); Mean Corpuscular HGB Conc 31.8 GM/DL (32-36); Mean Corpuscular Volume 86.5 FL (87-102); Mean Platelet Volume 11.1 FL (9.6-12.0); Monocytes % 12.4 % (1.7-12.7); Neutrophils % 59.8 % (38.7-73.9); Platelet Count 188 T/CUMM (130-400); Red Blood Count 4.65 MC/CUMM (3.8-5.5); White Blood Count 6.1 T/CUMM (4-12)
[2019-04-06 05:58] LABS: Calcium 8.3 MG/DL (8.5-10.1); Osmolality,Calculated 282.1 MOS/KG (273-304)
[2019-04-06] MEDS: cefTRIAXone 1,000 MG in SYRINGE 1 EACH IV SCH (08:47)
[2019-04-06] MEDS: PANTOPRAZOLE 40 MG TABLET PO SCH (08:47)
[2019-04-06] MEDS ORDERED: DUTASTERIDE 0.5 MG CAPSULE PO SCH (09:00)
[2019-04-06] MEDS ORDERED: ASCORBIC ACID 500 MG TABLET PO SCH (09:00)
[2019-04-06] MEDS ORDERED: CALCIUM (CARBONATE) 500 MG TABLET PO SCH (09:00)
[2019-04-06] MEDS ORDERED: BRIMONIDINE 0.1% OPH SOLN 5 ML BOTTLE RIGHT EYE SCH (09:00)
[2019-04-06] MEDS ORDERED: ASPIRIN EC 325 MG TABLET PO SCH (09:00)
[2019-04-06] MEDS ORDERED: CHOLECALCIFEROL 1,000 UNIT TABLET PO SCH (09:00)
[2019-04-06 12:04] VITALS: BP 158/99
[2019-04-06] MEDS ORDERED: TAMSULOSIN 0.4 MG CAPSULE PO SCH (21:00)
== END 2019-04-06 15:52 | disposition home or self-care (01) ==
LOC: N.ED 15:10 → N.EDINP 15:10 → SUATTDRO 21:12 → N.TELES 22:10
PROVIDERS: ADMIT Emergency Medicine; ATTEND Internal Medicine

== ENCOUNTER 2019-05-30 09:45 | Inpatient (IN) ==
[2019-05-30 10:44] LABS: Basophils % 0.6 % (0.0-0.8); Eosinophils # 0.1 10*3/uL (0.0-0.87); Eosinophils % 0.8 % (0.00-10.9); Hematocrit 43.4 VOL% (42.0-52.0); Hemoglobin 13.8 GM/DL (14.0-18.0); Immature Granulocytes % 0.5 %; Immature Granulocytes Absolute 0.03 #; Lymphocytes # 1.2 10*3/uL (1.4-4.0); Lymphocytes % 17.9 % (21.2-54.2); Mean Corpuscular HGB Conc 31.8 GM/DL (32-36); Mean Corpuscular Volume 87.1 FL (87-102); Mean Platelet Volume 10.6 FL (9.6-12.0); Monocytes % 10.4 % (1.7-12.7); Neutrophils % 69.8 % (38.7-73.9); Platelet Count 208 T/CUMM (130-400); Red Blood Count 4.98 MC/CUMM (3.8-5.5); Red Cell Distribution Width 15.4 % (9.3-17.3); White Blood Count 6.6 T/CUMM (4-12)
[2019-05-30 11:04] LABS: Calcium 8.7 MG/DL (8.5-10.1); Osmolality,Calculated 279.4 MOS/KG (273-304)
[2019-05-30 11:07] LABS: Amorphous Crystals,Urine Few /HPF (Few); Apearance,Urine Slightly Hazy (Clear); Bacteria,Urine Moderate /HPF (Few); Bilirubin,Urine Negative (Negative); Blood, Urine Large mg/dL (Negative); Glucose,Urine (UA) Negative (Negative); Ketones,Urine Negative (Negative); Mucus,Urine Occasional /LPF (Occasional); Nitrite,Urine Negative (Negative); Protein,Urine 30 MG/DL; RBC,Urine 211 /HPF (0-4); Urine Color Yellow (Yellow); Urine Specific Gravity 1.006 (1.001-1.035); Urine Urobilinogen < 2.0 EU/DL (0.2-1.0)
[2019-05-30] MEDS ORDERED: ONDANSETRON 4 MG/2 ML VIAL IV PRN (13:45)
[2019-05-30] MEDS ORDERED: ACETAMINOPHEN 325 MG TABLET PO PRN (13:45)
[2019-05-30] MEDS ORDERED: DOCUSATE SODIUM 100 MG CAPSULE PO PRN (13:45)
[2019-05-30] MEDS ORDERED: ASPIRIN 325 MG TABLET PO ONE (13:51)
[2019-05-30 14:26] LABS: Risk Ratio 2.97; Thyroid Stimulating Hormone 3.99 uIU/ml (0.358-3.74); VLDL CHOLESTEROL 16.6 MG/DL
[2019-05-30] MEDS: ENOXAPARIN 80 MG/0.8 ML SYRINGE SUBCUT SCH (15:52)
[2019-05-30] MEDS: SODIUM CHLORIDE 0.9% 1,000 ML IV SCH (17:29)
[2019-05-30] MEDS ORDERED: AMITRIPTYLINE 10 MG TABLET PO SCH (21:00)
[2019-05-30] MEDS ORDERED: cefTRIAXone 1,000 MG in SYRINGE 1 EACH IV SCH (21:00)
[2019-05-30] MEDS ORDERED: DUTASTERIDE 0.5 MG CAPSULE PO SCH (21:00)
[2019-05-30] MEDS ORDERED: TAMSULOSIN 0.4 MG CAPSULE PO SCH (21:00)
[2019-05-30] MEDS: BRIMONIDINE 0.1% OPH SOLN 5 ML BOTTLE RIGHT EYE SCH (21:15)
[2019-05-31 06:04] LABS: Basophils # 0.1 10*3/uL (0.0-0.2); Basophils % 0.9 % (0.0-0.8); Eosinophils # 0.1 10*3/uL (0.0-0.87); Eosinophils % 1.1 % (0.00-10.9); Hematocrit 39.1 VOL% (42.0-52.0); Hemoglobin 12.6 GM/DL (14.0-18.0); Immature Granulocytes % 0.6 %; Immature Granulocytes Absolute 0.03 #; Lymphocytes # 1.4 10*3/uL (1.4-4.0); Lymphocytes % 26.3 % (21.2-54.2); Mean Corpuscular HGB Conc 32.2 GM/DL (32-36); Mean Corpuscular Volume 86.1 FL (87-102); Mean Platelet Volume 11.2 FL (9.6-12.0); Monocytes % 13.6 % (1.7-12.7); Neutrophils % 57.5 % (38.7-73.9); Platelet Count 194 T/CUMM (130-400); Red Blood Count 4.54 MC/CUMM (3.8-5.5); Red Cell Distribution Width 15.2 % (9.3-17.3); White Blood Count 5.4 T/CUMM (4-12)
[2019-05-31] MEDS ORDERED: LEVOTHYROXINE 25 MCG TABLET PO SCH (06:30)
[2019-05-31 06:33] LABS: Albumin 2.9 G/DL (3.4-5.0); Bilirubin,Total 0.6 MG/DL (0.2-1.0); Calcium 8.2 MG/DL (8.5-10.1); Osmolality,Calculated 285.8 MOS/KG (273-304); Total Protein 6.4 G/DL (6.4-8.3)
[2019-05-31] MEDS ORDERED: PANTOPRAZOLE 40 MG TABLET PO SCH (09:00)
[2019-05-31] MEDS: BRIMONIDINE 0.1% OPH SOLN 5 ML BOTTLE RIGHT EYE SCH (09:27)
[2019-05-31] MEDS: ENOXAPARIN 80 MG/0.8 ML SYRINGE SUBCUT SCH (09:27)
[2019-05-31] MEDS: SODIUM CHLORIDE 0.9% 1,000 ML IV SCH (16:22)
[2019-05-31 16:26] VITALS: BP 137/79
[2019-05-31] MEDS ORDERED: APIXABAN 5 MG TABLET PO SCH (21:00)
[2019-05-31] MEDS ORDERED: ATORVASTATIN 40 MG TABLET PO SCH (21:00)
== END 2019-05-31 17:36 | disposition home or self-care (01) | DRG 65 ==
LOC: N.ED 09:45 → N.EDINP 13:45 → SUATTDRO 13:45 → N.2E 14:50
PROVIDERS: ADMIT Internal Medicine Nephrology; ATTEND Internal Medicine